=== PATIENT | male | born 1975 | race Two or more races ===

== ENCOUNTER → 2024-05-18 | Outpatient (CLI) | payer MEDICAID, BC, SELFPAY ==
--- NOTE | 2024-05-18 16:48 | XR_ITS ---
Examination:Left hip AP, lateral, AP pelvis 3 views Technique: Hip AP lateral, AP pelvis, 3 views Exam date and time:May 18, 2024 1703 hrs. Indications: Left hip pain beginning one year ago. Findings: Mild narrowing hip joints No right or left hip fracture or dislocation No avascular necrosis Bones of the pelvis intact Impression: Mild bilateral narrowing hip joints.
== END | disposition home or self-care (01) ==
PROVIDERS: PCP Chiropractor; Referring Provider Chiropractor; Visit Provider Chiropractor
DX: M25.852 Other specified joint disorders, left hip (principal); M25.851 Other specified joint disorders, right hip
CPT/HCPCS: 73502

== ENCOUNTER → 2024-06-08 | Outpatient (CLI) | payer BC, SELFPAY ==
--- NOTE | 2024-06-08 14:24 | XR_ITS ---
Examination: Lumbar spine, 5 views Technique: Lumbar spine AP, lateral, coned lateral lower lumbar spine, bilateral obliques 5 views Exam date and time: June 08, 2024 1434 hours INDICATIONS: Low back pain beginning 4 months ago. FINDINGS: Satisfactory alignment lumbar vertebral bodies No lumbar fracture Moderate lumbar spondylosis Mild disc narrowing diffusely IMPRESSION: Mild diffuse lumbar degenerative disc disease most prominent at L5-S1
== END | disposition home or self-care (01) ==
PROVIDERS: PCP Family Medicine; Referring Provider Orthopaedic Surgery; Visit Provider Orthopaedic Surgery
DX: M51.360 Other intervertebral disc degeneration, lumbar region with discogenic back pain only (principal); M51.370 Other intervertebral disc degeneration, lumbosacral region with discogenic back pain only
CPT/HCPCS: 72110